=== PATIENT | male | born 1955 | race Caucasian/White ===

== ENCOUNTER → 2016-11-15 | Outpatient (CLI) | payer BC ==
[2016-11-15 10:00] LABS: BILIRUBIN,URINE SMALL (NEG); CLARITY,URINE CLEAR (CLEAR); GLUCOSE, URINE (UA) NEGATIVE (NEG); LEUKOCYTE ESTERASE ,URINE NEGATIVE (NEG); NITRATE,URINE NEGATIVE (NEG); OCCULT BLOOD,URINE NEGATIVE (NEG); PROTEIN,URINE NEGATIVE (NEG); UROBILINOGEN,URINE >8.0 mg/dL (0.2)
[2016-11-15 10:05] LABS: HEMOGLOBIN A1C 6.37 % (4.2-6.0); MEAN BLOOD GLUCOSE (CALC) 126.121 mg/dL
[2016-11-15 10:16] LABS: CREATININE, URINE 166.4 MG/DL (15-500)
[2016-11-15 10:21] LABS: URINE SAMPLE TYPE CLEAN CATCH URINE
[2016-11-15 10:23] LABS: RBC,URINE 0-3 /hpf; SQUAMOUS EPITHELIAL CELL,UR RARE
== END ==
LOC: MOB LAB 09:22
DX: E11.9 Type 2 diabetes mellitus without complications (principal); E55.9 Vitamin D deficiency, unspecified; I10 Essential (primary) hypertension; E78.5 Hyperlipidemia, unspecified
CPT/HCPCS: 36415; 81001; 82043; 82306; 83036

== ENCOUNTER 2017-06-02 11:43 | Emergency (ER) | payer BC ==
[2017-06-02] MEDS ORDERED: Sodium Chloride 0.9% 1,000 ML PRIMARY IV ONE (11:52)
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
[2017-06-02 12:12] LABS: BLOOD UREA NITROGEN 18 mg/dL (7-22); CALCIUM 9.7 mg/dL (8.7-10.7); EST GLOMERULAR FILTRATION > 60 (>60 ml/min/1.73m(2)); MAGNESIUM 1.9 mg/dL (1.6-2.4); SERUM ALBUMIN 4.2 g/dL (3.5-4.8)
[2017-06-02 12:13] LABS: C-REACTIVE PROTEIN < 0.5 mg/dL (0.0-0.9)
[2017-06-02 12:16] LABS: HEMATOCRIT 44.4 % (42.0-52.0); HEMOGLOBIN 14.8 g/dL (14.0-18.0); MEAN CORPUSCULAR HEMOGLOBIN 31.8 PG (27-31); MEAN CORPUSCULAR HGB CONC 33.3 g/dL (33-37); MEAN CORPUSCULAR VOLUME 95.5 FL (80-90); MEAN PLATELET VOLUME 9.6 FL (7.4-12.2); RED BLOOD COUNT 4.65 10^6/uL (4.70-6.10)
[2017-06-02 12:17] VITALS: RESP 18; TEMP 96.9
[2017-06-02 12:17] LABS: BASOPHILS # (AUTO) 0.12 10*3/UL; BASOPHILS % (AUTO) 1.7 % (0-1); EOSINOPHILS # (AUTO) 0.27 10*3/UL; EOSINOPHILS % (AUTO) 3.7 % (0-8); LYMPHOCYTES # (AUTO) 2.08 10*3/uL; MONOCYTES # (AUTO) 0.77 10*3/UL (0.3-0.8); MONOCYTES % (AUTO) 10.6 % (5-15); NEUTROPHILS # (AUTO) 3.99 10*3/UL; NEUTROPHILS % (AUTO) 54.9 % (50-80); PLATELET MORPHOLOGY COMMENT NORMAL MORPHOLOGY (NORM); RBC MORPHOLOGY COMMENT NORMAL MORPHOLOGY (NORM); WBC MORPHOLOGY COMMENT NORMAL MORPHOLOGY (NORM)
[2017-06-02 12:35] LABS: FREE T4 (FREE THYROXINE) 0.69 ng/dL (0.93-1.71)
--- NOTE | 2017-06-02 12:37 | DI ---
MRI BRAIN SCAN WITHOUT IV CONTRAST, 06/02/2017 11:49 AM: Clinical History: Stroke symptoms Previous Exam: None at this facility. Sequences: Sagittal T1; Axial CITLALY T2 and FLAIR. Axial diffusion weighted images with ADC mapping were also performed. The fourth ventricle is of normal size, shape, position and contour. The third and lateral ventricles are very mildly dilated but are otherwise normal. There is an old lacunar infarct of the left basal ganglia. There is no evidence of an acute hemorrhagic or bland infarct. There are multiple punctate p eriventricular white matter hyperintensities bilaterally that extend into the watershed territory, co nsistent with small vessel ischemic disease. This amount of ischemic disease is appropriate for the p atient's age. There is moderate cerebral atrophy. Diffusion weighted imaging with ADC mapping is norm al. There are no extracerebral mantels or shift of the midline structures. The paranasal sinuses are normal. Readin. There is no evidence of an acute hemorrhagic or bland infarct. There is an old lacunar infarct of the inferior portion of the left basal ganglia. 2. Diffusion weighted imaging with ADC mapping is normal. 3. Small vessel ischemic disease. 4. Moderate cerebral atrophy.
[2017-06-02 12:42] LABS: BILIRUBIN,URINE NEGATIVE (NEG); CLARITY,URINE CLEAR (CLEAR); COLOR,URINE YELLOW; GLUCOSE, URINE (UA) NEGATIVE (NEG); NITRATE,URINE NEGATIVE (NEG); OCCULT BLOOD,URINE NEGATIVE (NEG); PROTEIN,URINE NEGATIVE (NEG); UROBILINOGEN,URINE 0.2 EU/dL (0.2)
[2017-06-02 12:44] LABS: URINE SAMPLE TYPE VOIDED SPECIMEN
== END 2017-06-02 13:30 | disposition home or self-care (01) ==
LOC: ER 11:43
DX: R42 Dizziness and giddiness (principal); N39.490 Overflow incontinence; R47.81 Slurred speech; E11.9 Type 2 diabetes mellitus without complications; I10 Essential (primary) hypertension; E78.5 Hyperlipidemia, unspecified; R29.810 Facial weakness
CPT/HCPCS: 70551; 80053; 80320; 81003; 83735; 84439; 84443; 85025; 86140; 99283; J7030

== ENCOUNTER → 2017-06-27 | Outpatient (CLI) | payer BC, OTHER ==
--- NOTE | 2017-06-27 12:35 | DI ---
History: Transient cerebral ischemia Comparison: None Grayscale and color flow Doppler imaging performed. Flow velocity in left common carotid artery elevated 156 cm/s Flow velocity in the right common carotid artery normal at 106 cm/s Flow velocity in the right carotid bulb normal at 89 cm/s Flow velocity in the left carotid bulb normal at 86 cm/s flow velocity in the right internal carotid artery 80 cm/s Flow velocity in the left internal carotid artery is elevated at 119 cm/s. Flow is antegrade and vertebral arteries bilaterally. Impression Stenosis of 40-59% in the left internal carotid artery Stenosis of 60-79% in the left common carotid artery
== END ==
LOC: US 07:41
DX: G45.9 Transient cerebral ischemic attack, unspecified (principal); R06.02 Shortness of breath; R42 Dizziness and giddiness; I10 Essential (primary) hypertension; E11.9 Type 2 diabetes mellitus without complications; E66.9 Obesity, unspecified; I34.0 Nonrheumatic mitral (valve) insufficiency; I51.7 Cardiomegaly; I27.2 Other secondary pulmonary hypertension
CPT/HCPCS: 93306; 93880